=== PATIENT | female | born 1945 | race Two or more races ===

== ENCOUNTER 2017-10-13 06:28 | Day surgery (SDC) | payer OTHER ==
[~2017-10-13 06:28] MED LIST: AVALIDE 300-121 EACH PO; GABAPENTIN800 MG PO; GLIPIZIDE10 MG PO; SYNTHROID50 MCG PO; TOPROL XL25 M1 PO
== END 2017-10-13 18:00 | disposition home or self-care (01) ==
LOC: CIR.AMB 06:28
DX: D24.2 Benign neoplasm of left breast (principal)

== ENCOUNTER 2021-04-26 10:44 | Outpatient (CLI) | payer OTHER | END 2021-04-26 10:59 | disposition home or self-care (01) | LOC: SONOGRAMA 10:44 | PROVIDERS: ATTEND Surgery | DX: N60.11 Diffuse cystic mastopathy of right breast (principal); N60.12 Diffuse cystic mastopathy of left breast ==